=== PATIENT | female | born 1985 | race Caucasian/White ===

== ENCOUNTER 2020-11-15 16:27 | Outpatient (RCR) | payer OTHER, SELFPAY ==
[2020-11-07 11:29] VITALS: BP 125/81; PULSE 89
[2020-11-15 17:08] VITALS: BP 145/79; PULSE 91
== END 2020-12-03 07:55 | disposition home or self-care (01) ==
LOC: ANHOBOP 16:27
PROVIDERS: PCP Family Medicine; Visit Provider Obstetrics & Gynecology
DX: O16.3 Unspecified maternal hypertension, third trimester (principal); Z3A.36 36 weeks gestation of pregnancy; Z3A.37 37 weeks gestation of pregnancy
CPT/HCPCS: 59025

== ENCOUNTER 2020-11-21 10:14 | Inpatient (IN) | payer OTHER, SELFPAY ==
[2020-11-21] VITALS (72 sets, daily range): BP systolic 83–162; BP diastolic 50–103; PULSE 78–120; TEMP 36.4–36.7; O2SAT 97–100; BMI 46.5
--- NOTE | 2020-11-21 10:25 | WPDANESEPP ---
Anes - Eval Pre Procedure Procedure: Operation Date: 11/21/20 13:30 Proposed Procedures p Primary Section - Arnaud Kumar MD Date/Time: 11/21/20 10:25 Pre Op Diagnosis: version Patient Data Age: 34 Gender: F Height: Weight: Allergies Allergy/AdvReac Type Severity Reaction Status Date / Time No Known Allergies Allergy Verified 11/03/20 14:36 Home Medications Medication Instructions Recorded Confirmed Type PNV cmb#95-ferrous fumarate-FA 1 tablet PO DAILY 11/03/20 11/07/20 History [] cetirizine [Zyrtec] 10 mg PO DAILY 11/03/20 11/07/20 History labetalol 300 mg PO Q12H 11/03/20 11/07/20 History aspirin 81 mg PO DAILY 11/07/20 11/07/20 History Patient hx anesthesia problems: none Family hx anesthesia problems: none PMFSH Past Medical History Medical History FH: HTN (hypertension) Morbid obesity Family History Family History Mother Hypertension Social History Social History Substance use: never Spiritual care concerns: No Exam Day of Procedure 11/21/20 10:25 Patient weight: morbidly obese Heart: regular rate and rhythm Lungs: normal air movement Airway: Mallampati scale Neurological: alert and oriented
[2020-11-21] MEDS: LACTATED RINGERS 1,000 ML 125 ML IV CONT ×3 (10:46→20:30)
--- NOTE | 2020-11-21 10:48 | LDADM ---
This patient, Alycia Bajwa, was admitted to Labor/Delivery/Recovery 120 on 11/21/20 at 10:14. Plans for labor, pain management and were discussed with patient. Patient/family oriented to hospital policies and general routines including ID bracelet, bed and alarms, visiting hours, pain management, procedures, bathroom and other care routines, personal items, smoking policy, room service/diet and guest tray routines, infant security routines, and visiting hours. Patient/Family are encouraged to report perceived risks to care and to ask questions if they do not understand what they are told or what they should do. See OBIX for further documentation.
[2020-11-21 12:09] LABS: Basophils Percent Auto 0.3 % (0.2-1.2); Eosinophils Absolute Auto 0.1 K/mm3 (0-0.3); Eosinophils Percent Auto 1.1 % (0-4.4); Hematocrit 33.6 % (37.0-47.0); Hemoglobin 11.5 g/dL (12.0-15.0); Immature Granulocyte Absolute 0.08 K/mm3 (0.00-0.031); Immature Granulocyte Percent A 0.7 % (0-0.5); Lymphocytes Absolute Auto 1.59 K/mm3 (0.9-3.2); Lymphocytes Percent Auto 14.7 % (18.3-44.2); Mean Corpuscular HGB Conc 34.2 g/dl (32-36); Mean Corpuscular Volume 90.6 fl (80-100); Mean Platelet Volume 9.7 fl (7.4-10.4); Monocytes Absolute Auto 0.7 K/mm3 (0.1-0.6); Neutrophils Absolute Auto 8.3 K/mm3 (1.3-6.7); Neutrophils Percent Auto 77.2 % (45.5-73.1); Platelet Count Result 258 k/mm3 (150-375); Red Blood Count 3.71 M/mm3 (4.2-5.4); Red Cell Distribution Width 13.2 % (11.5-14.5); White Blood Count 10.8 K/mm3 (4.5-10.0)
--- NOTE | 2020-11-21 12:15 | PM.IMHP ---
H&P: HPI History of Present Illness Date/Time: 11/21/20 12:53 34 y/o G1 at 38 3/7 weeks with CHTN, on labetalol 300 mg po bid. Also found to have breech presentation. Here for ECV, possible induction of labor vs. . Chief Complaint: Breech baby Review of Systems Review of Systems: All systems reviewed & are unremarkable except as noted in HPI and below PMFSH Past Medical History Medical History FH: HTN (hypertension) Morbid obesity Family History Family History Mother Hypertension Social History Social History Smoking status: Never smoker Substance use: never Spiritual care concerns: No Meds Home Medications and Allergies Home Medications Medication Instructions Recorded Confirmed Type PNV cmb#95-ferrous fumarate-FA 1 tablet PO DAILY 11/03/20 11/21/20 History [] cetirizine [Zyrtec] 10 mg PO DAILY 11/03/20 11/21/20 History labetalol 300 mg PO Q12H 11/03/20 11/21/20 History aspirin 81 mg PO DAILY 11/07/20 11/21/20 History Allergies Allergy/AdvReac Type Severity Reaction Status Date / Time No Known Allergies Allergy Verified 11/03/20 14:36 Vital Signs Vital Signs - 24 hr 11/21/20 10:31 11/21/20 11:00 11/21/20 11:32 Temperature 36.4 C Pulse Rate 105 H Blood Pressure 134/87 Pulse Oximetry 99 11/21/20 11:33 11/21/20 11:37 11/21/20 11:40 Temperature Pulse Rate 87 100 Blood Pressure 147/100 H 147/79 H Pulse Oximetry 98 11/21/20 11:42 11/21/20 11:44 11/21/20 11:46 Temperature Pulse Rate 95 87 105 H Blood Pressure 142/79 H 143/87 H 110/95 H Pulse Oximetry 97 11/21/20 11:47 11/21/20 11:48 11/21/20 11:51 Temperature Pulse Rate 94 86 Blood Pressure 130/79 141/75 H Pulse Oximetry 98 11/21/20 11:52 11/21/20 11:54 11/21/20 11:56 Temperature Pulse Rate 89 96 Blood Pressure 139/65 135/56 L Pulse Oximetry 98 11/21/20 11:57 11/21/20 11:59 11/21/20 12:01 Temperature Pulse Rate 94 95 Blood Pressure 132/55 L 138/50 L Pulse Oximetry 98 11/21/20 12:02 11/21/20 12:04 11/21/20 12:07 Temperature Pulse Rate 87 Blood Pressure 129/61 Pulse Oximetry 97 99 11/21/20 12:12 11/21/20 12:16 11/21/20 12:17 Temperature Pulse Rate 104 H Blood Pressure 127/69 Pulse Oximetry 97 98 11/21/20 12:22 11/21/20 12:27 11/21/20 12:32 Temperature Pulse Rate Blood Pressure Pulse Oximetry 99 98 98 11/21/20 12:37 11/21/20 12:42 11/21/20 12:46 Temperature Pulse Rate 100 Blood Pressure 83/60 L Pulse Oximetry 99 100 Exam Const: Orientation/consciousness: patient oriented x3 Other: Well-developed, well-nourished female in no acute distress. Neck: Thyroid: thyroid normal Lymphatic: no lymphadenopathy noted (in neck, axilla or inguinal nodes) Resp: Effort & Inspection: normal respiratory effort Auscultation: clear to auscultation bilaterally Cardio: Rate: regular rate Rhythm: regular rhythm Heart sounds: S1 normal heart sound present and S2 normal heart sound present GI: Other: ABD: Soft, nontender, nondistended, gravid. No guarding or rebound tenderness. No hepatosplenomegaly. NST reactive. TOCO: rare contractions. Bedside ultrasound shows sidney breech presentation with back to maternal left. Fundal placenta. Adequate AFV. : General: Yes no CVA tenderness Other: Cervix 1/50/-3. Back/Spine/Pelvis: Back: no CVA tenderness Skin: General skin exam: normal color and no rashes or lesions noted Neuro: General: patient oriented x3 Extrem: Other: Extremities: nontender with no edema Psych: Mental Status: mental status grossly normal Affect: normal affect H&P: Results Labs Labs: Short CBC 11/21/20 Range/Units 10:27 WBC 10.8 H (4.5-10.0) K/mm3 Hgb 11.5 L (12.0-15.0) g/dL Hct
[2020-11-21] MEDS: TERBUTALINE SULFATE 1 MG/ML VIAL 0.25 MG SUB-Q (12:25)
--- NOTE | 2020-11-21 13:00 | W.PM.PROC2 ---
Procedure Note - Detailed Date of Procedure 11/21/20 Pre-op Diagnosis Breech presentation IUP at 38 3/7 weeks CHTN Post-op Diagnosis other (Cephalic presentation IUP at 38 3/7 weeks CHTN) Procedure Performed External cephalic version under ultrasound guidance. Surgeon Arnaud Kumar MD Anesthesia epidural Description of Procedure The patient was admitted to Labor and delivery. IV access was obtained and she received IV hydration. She received an epidural for pain control. Bedside ultrasound performed by ne confirmed sidney breech presentation with the back to the maternal left. Adequate amniotic fluid volume and fundal placenta were confirmed. She was given 0.25mg of terbutaline subcutaneously. Under ultrasound guidance, the breech was elevated out of the maternal pelvis. A reverse (clockwise) somersault was attempted unsuccessfully. A forward (counterclockwise) somersault was attempted, which was successful. Cephalic presentation was confirmed sonographically. heart rate was normal throughout the procedure. The patient tolerated the procedure well. The cervix was examined and amniotomy was performed. Clear fluid was noted. An intrauterine pressure catheter was also placed. She was moved to a labor room. She will receive oxytocin intravenously for labor induction. Maternal blood type is A negative. Her 's blood type os O negative. Estimated Blood Loss 0 Drains No Packing No Pathology none sent Complications None Condition stable Disposition other (Labor room)
[2020-11-21] MEDS: OXYTOCIN 30 UNITS/NS 500 ML 30 UNITS/500 ML BAG 6 UNITS IV CONT (13:30)
--- NOTE | 2020-11-21 21:51 | PM.OBPNLAB ---
Pain Control Date/time seen: 11/21/20 21:51 Comments: Began to feel contractions, so epidural was restarted. Pelvic Exam Dilation (cm): 2 Effacement (%): 80 station: -3 Contractions Monitor mode: Internal Contraction frequency: 3 Contraction pattern: Regular Status status: Category l Assessment and Plan Comments: Continue labor.
[2020-11-21] MEDS: LABETALOL HCL 100 MG TABLET 300 MG PO (22:28)
[2020-11-22] VITALS (93 sets, daily range): BP systolic 93–141; BP diastolic 40–91; PULSE 59–133; RESP 14–20; TEMP 36.2–37.7; O2SAT 93–99
[2020-11-22] MEDS: LACTATED RINGERS 1,000 ML 125 ML IV CONT (00:30)
[2020-11-22 06:17] LABS: Rapid Plasma Reagin Non-Reactive (NonReactive)
[2020-11-22] MEDS: ONDANSETRON INJ 4 MG/2 ML VIAL IV PUSH (06:22)
[2020-11-22] MEDS: AMPICILLIN 2 GM/NS 100 ML 2 GM/100 ML BAG IVPB (06:38)
[2020-11-22] MEDS: LORATADINE 10 MG TABLET PO (07:01)
[2020-11-22] MEDS: LABETALOL HCL 100 MG TABLET 300 MG PO (07:01)
--- NOTE | 2020-11-22 07:36 | PM.OBPNLAB ---
Pain Control Date/time seen: 11/22/20 07:36 Pain control: epidural Comments: Pt is comfortable in bed. She is afebrile and denies any abdominal tenderness. Pelvic Exam Dilation (cm): 2 Effacement (%): 80 station: -3 Amniotic membrane status: Ruptured Contractions Monitor mode: Internal Contraction frequency: 3 Contraction pattern: Regular Status status: Category l Assessment and Plan Pitocin rate (mU/min): 8 Assessment: induction ongoing Plan: Comments: pt has been ruptured for >18 hrs. She has an IUPC in and has been receiving pitocin for >18 hrs. Her cervix remains unchanged and the head is not engaged. discussed arrest of dilation and failed IOL. pt given the option of delivery or continued pitocin IOL. Risks, benefits, alternatives discussed. Pt and discussed and elected to proceed with delivery.
[2020-11-22] MEDS: ceFAZolin 3 GM/D5W 100 ML 100 ML IVPB (08:01)
[2020-11-22] MEDS: OXYTOCIN 30 UNITS/NS 500 ML 30 UNITS/500 ML BAG 125 UNITS IV CONT (09:20)
--- NOTE | 2020-11-22 09:29 | W.PM.PROC2 ---
Procedure Note - Detailed Date of Procedure 11/22/20 Pre-op Diagnosis version failed IOL arrest of dilation Post-op Diagnosis same Procedure Performed Primary section Surgeon Yuriy Nicholson MD Anesthesia epidural Indications patient underwent successful ECV. pt had attempted IOL after version. Cvx never dilated and head never engaged Findings approximately 3cm subserosal fibroid on the posterior aspect of the fundus. normal appearing fallopian tubes and ovaries bilaterally. Description of Procedure The patient was taken to the operating room. A combined spinal epidural anesthesic was in place and found to be adequate. The patient was placed in a supine position with a slight left lateral tilt. A choe catheter was placed with return of clear urine. A Bovie grounding pad was placed. Surgical prep was performed and surgical drapes were placed. A surgical time out was performed. A Pfannenstiel skin incision was then made with the scalpel and carried through to the underlying layer of fascia. The fascia was then incised in the midline and the incision was extended laterally with the Encarnacion scissors. The superior aspect of the fascia was then grasped with the Gabriela clamps, elevated, and the underlying rectus muscles dissected off bluntly and sharply. Attention was then turned to the inferior aspect of this incision which, in a similar fashion, was grasped, tented up with the Gabriela clamps, and the rectus muscles dissected off both bluntly and sharply. The rectus muscles were then in the midline. The peritoneum was identified and entered bluntly. The peritoneal incision was then extended superiorly and inferiorly with good visualization of the bladder. The vesico-uterine serosa was identified and dissected to create a bladder flap. The bladder blade was reinserted. The uterus was inspected for rotation. A low-transverse uterine incision was made sharply with the scalpel and entry was made into the uterine cavity. The uterine incision was extended laterally bluntly. The bladder blade was removed and the fetus was delivered atraumatically. The nose and mouth were suctioned with a bulb syringe. The umbilical cord was clamped twice and cut. The was handed off to the waiting staff. A second segment of umbilical cord was clamped and cut for cord blood gasses. Cord blood was collected for determination of the blood type and for direct Marvin. The placenta was delivered spontaneously without difficulty. The placenta appeared grossly normal and complete. The uterus was unable to be exteriorized and remained in the abdomen. The uterus was cleared of all clot and debris. A posterior fundal fibroid was noted. The uterine incision was repaired using 0-Monocryl suture in a running fashion. A second layer of 0 Monocryl suture was used in an imbricating fashion to obtain excellent hemostasis and uterine strength. The uterine closure was inspected for hemostasis. The posterior aspect of the uterus and the broad ligaments were inspected and the posterior cul-de-sac cleared of fluid and blood clots. The uterine closure was again inspected and found to be hemostatic. The uterus was returned to the abdominal cavity. The pericolic gutters were inspected and were cleared of all blood clots and debris. The uterine closure was then re inspected to ensure hemostasis as were all subfascial tissues. The peritoneum was closed using 3-0 vicryl in a running fashion. The fascia was reapproximated with 0-vicryl in a running fashion. The subcutaneous tissue was irrigated and hemostasis achieved with electrocautery. It was reapproximated with 3-0 vicryl in a running fashion. The skin was closed with 4- vicryl in a running fashion. A JIMMY wound vacuum was applied to the wound. The patient tolerated the procedure well. Sponge, lap and needle counts were correct times three. The patient was taken to recovery in stable condition and without ant
--- NOTE | 2020-11-22 09:38 | P.PCNOB_ITS ---
OB - Delivery Note Procedure Procedure: Procedures Operation Date: 11/21/20 13:30 <No data on this case meets the specified criteria> Operation Date: 11/22/20 08:00 <No data on this case meets the specified criteria> events: Induced HTN and Labor Induction Intrapartal events: Prolonged Latent Phase, Ceph-Pelvic Disproportion and Failure to Progress in Labor Induction method: per pitocin protocol Delivery augmentation: rupture of membranes Route of delivery: Quantitative Blood Loss (ml): 610 Anesthesia type: Epidural Disposition: floor [place] Baby Date of : 11/22/20 Time of : 08:20 Weeks of gestation at delivery: 38 gender: Female Weight (pounds): 7 Weight (ounces): 9 presentation: vertex Placenta delivery description: Manual Removal cord vessel description: 3 Vessels and Around Body x1 score one minute: 3 score five minutes: 9
[2020-11-22] MEDS: fentaNYL CITRATE INJ (*CRX) 100 MCG/2 ML VIAL 50 MCG IV PUSH (10:47)
--- NOTE | 2020-11-22 11:47 | PC.NURSE ---
Patient transferred to post room # 291 per stretcher. Support person present. Oriented to unit, room, information board, rooming in, admission packet and security measures. Patient verbalizes understanding.
[2020-11-22] MEDS: KETOROLAC 30 MG/ML VIAL (*BKC) IV PUSH (13:41)
[2020-11-22] MEDS: HYDROcodone/acetaminophen (*CRX) 10-325 MG TABLET 1 TAB PO ×2 (13:44→17:46)
[2020-11-22] MEDS: DEXTROSE 5%/0.45% SOD CHL 1,000 ML 125 ML IV CONT (13:45)
--- NOTE | 2020-11-22 14:04 | PC.NURSE ---
Consult with pt., mother wishes to pump and bottle feed. Breast pump provided due to mother's wishes. Instructions given on breast pump care and usage, pumping schedule, nipple care, and collection and storage of breast milk. Encouraged [id number], breast massage and manual expression to stimulate supply. Assessed patient for correct flange size, placement and draw. Patient verbalizes and demonstrates understanding of instructions. Discussed colostrum vs milk supply and mother may not see more than a few drops the first few days, milk should transition in by day 3 and she may see more volume pumped per session.
[2020-11-22] MEDS: DOCUSATE SODIUM 100 MG CAPSULE PO (17:46)
[2020-11-22] MEDS: SIMETHICONE 80 MG TAB.CHEW PO (17:47)
[2020-11-23 04:05] VITALS: BP 132/61; PULSE 107; RESP 16; TEMP 36.1
[2020-11-23] MEDS: ACETAMINOPHEN 325 MG TABLET 650 MG PO ×2 (04:30→10:33)
[2020-11-23] MEDS: IBUPROFEN 600 MG TABLET PO ×4 (04:30→23:37)
[2020-11-23 05:00] LABS: Basophils Percent Auto 0.3 % (0.2-1.2); Eosinophils Absolute Auto 0.1 K/mm3 (0-0.3); Eosinophils Percent Auto 0.5 % (0-4.4); Hematocrit 29.5 % (37.0-47.0); Hemoglobin 9.8 g/dL (12.0-15.0); Immature Granulocyte Percent A 0.6 % (0-0.5); Lymphocytes Percent Auto 8.1 % (18.3-44.2); Mean Corpuscular HGB Conc 33.2 g/dl (32-36); Mean Corpuscular Hemoglobin 30.8 pg (26-34); Mean Corpuscular Volume 92.8 fl (80-100); Mean Platelet Volume 9.5 fl (7.4-10.4); Monocytes Absolute Auto 0.8 K/mm3 (0.1-0.6); Monocytes Percent Auto 5.2 % (2.6-8.5); Neutrophils Absolute Auto 13.6 K/mm3 (1.3-6.7); Neutrophils Percent Auto 85.3 % (45.5-73.1); Platelet Count Result 208 k/mm3 (150-375); Red Blood Count 3.18 M/mm3 (4.2-5.4); Red Cell Distribution Width 13.5 % (11.5-14.5)
[2020-11-23 07:10] VITALS: BP 136/83; PULSE 99; RESP 18; TEMP 36.4; O2SAT 97
[2020-11-23] MEDS: POLYSACCHARIDE IRON COMPLEX 150 MG CAPSULE PO ×2 (09:33→16:23)
[2020-11-23] MEDS: MULTIVIT/MIN/PREN/FOL AC/IRON TABLET 1 TAB PO (09:34)
[2020-11-23] MEDS: DOCUSATE SODIUM 100 MG CAPSULE PO ×2 (09:34→16:23)
--- NOTE | 2020-11-23 11:27 | PM.OBPNVD ---
OB - PN: Subj Subjective Date/time seen: 11/23/20 11:27 Interval history: Patient doing well this AM. She is ambulating. She is tolerating PO. She reports adequate pain control. Her bleeding is normal and she reports normal lochia. She denies fever, chills, N/V. She has not yet passed flatus. Patient comments: no complaints and pain well controlled; no flatus present OB - PN: Obj Data Labs CBC & Chem 7: 11/23/20 04:07 Labs: Laboratory Results - last 24 hr 11/23/20 04:07 WBC 16.0 H RBC 3.18 L Hgb 9.8 L Hct 29.5 L MCV 92.8 MCH 30.8 MCHC 33.2 RDW 13.5 Plt Count 208 MPV 9.5 Immature Gran % (Auto) 0.6 H Neut % (Auto) 85.3 H Lymph % (Auto) 8.1 L Runnels % (Auto) 5.2 Eos % (Auto) 0.5 Baso % (Auto) 0.3 Lymph # (Auto) 1.30 Runnels # (Auto) 0.8 H Eos # (Auto) 0.1 Baso # (Auto) 0.0 Abs Immat Gran (auto) 0.10 H Absolute Neuts (auto) 13.6 H Absolute Nucleated RBC 0.0 Nucleated RBC % 0.0 OB - PN A/P Plan day: 1 Plan: routine care Comments: patient doing well this AM s/p choe, voiding spontaneously tolerating PO H/H 9.10/28, asymptomatic, will continue iron supplementation Pt with CHTN, pt was on antihypertensives throughout . BP remains normotensive since delivery. will continue to hold labetalol at this time. Will restart at pre- dose of 100 mg BID if BP elevate continue routine PP care Time Spent With Patient Time: Total time spent is greater than 50% in coordination of care (as documented) at patient's floor/unit and/or counseling patient: Time with patient: less than 15 minutes Review of Systems Constitutional: Constitutional: Reports no additional constitutional complaints Cardiovascular: Cardiovascular: Reports no additional cardiovascular complaints Respiratory: Respiratory: Reports no additional respiratory complaints Gastrointestinal: Gastrointestinal: Reports no additional gastrointestinal complaints Genitourinary: Genitourinary: Reports no additional female genitourinary complaints Exam Const: General: comfortable and no acute distress Resp: Effort & Inspection: normal respiratory effort Auscultation: clear to auscultation bilaterally Cardio: Rate: regular rate GI: GI Palp: Yes Soft to palpation and Yes Tenderness to palpation present (GI) (appropriately tender around incision ) Auscultation: normal bowel sounds Other: fundus firm and below umbilicus Incision C/D, JIMMY dressing in place Urinary Catheter: Urinary Catheter: urine clear Psych: Appearance: grossly normal Mental Status: mental status grossly normal Affect: normal affect
[2020-11-23 12:17] VITALS: BP 131/78; PULSE 108; RESP 18; TEMP 37.1; O2SAT 99
--- NOTE | 2020-11-23 13:33 | WPDANLDPN2 ---
Anes-Prog Note L&D Date/Time: 11/23/20 13:33 Comfortable throughout: section Neuraxial method: epidural Epidural/Spinal procedure site: clean & non-tender Neuro status: Neuro function grossly intact. Cardiovascular status: normal Respiratory status: normal Airway patency: baseline Mental status: baseline Post-Op hydration status: normal Vital Signs: Last Vital Signs Temp 37.1 C 11/23/20 12:17 Pulse 108 H 11/23/20 12:17 Resp 18 11/23/20 12:17 BP 131/78 11/23/20 12:17 Pulse Ox 99 11/23/20 12:17 Pain score (VAS): no complaints I/O: Intake & Output 11/22/20 11/23/20 11/23/20 23:59 07:59 15:59 Intake Total 800 1400 Output Total 600 1300 Balance 200 100 Post-procedural complaints: none Patient feedback: Patient satisfied with anesthetic care.
--- NOTE | 2020-11-23 13:33 | WPDANLDNPN2 ---
Anes-Prog Note L&D-Neuraxial Date/Time: 11/23/20 13:33 Neuraxial medications: epidural PF morphine Opiod-related complaints: none Patient feedback: Patient satisfied with post-operative pain management.
[2020-11-23 16:15] VITALS: BP 118/68; PULSE 114; RESP 18; TEMP 36.6; O2SAT 98
[2020-11-23] MEDS: HYDROcodone/acetaminophen (*CRX) 5-325 MG TABLET 1 TAB PO ×2 (16:23→23:38)
[2020-11-23] MEDS: SIMETHICONE 80 MG TAB.CHEW PO ×3 (16:24→23:37)
[2020-11-23 20:15] VITALS: BP 109/69; PULSE 101; RESP 16; TEMP 36.6
[2020-11-23 23:20] VITALS: BP 120/71; PULSE 107; RESP 16; TEMP 36.7
[2020-11-24] MEDS: SIMETHICONE 80 MG TAB.CHEW PO ×2 (04:55→10:37)
[2020-11-24] MEDS: IBUPROFEN 600 MG TABLET PO (04:55)
[2020-11-24] MEDS: HYDROcodone/acetaminophen (*CRX) 5-325 MG TABLET 1 TAB PO ×2 (04:56→09:35)
[2020-11-24 04:58] VITALS: BP 137/88; PULSE 101; RESP 16; TEMP 36.7
--- NOTE | 2020-11-24 07:14 | PM.OBDSVD ---
DS: Admitting Diagnosis Discharge Date 11/24/20 Admitting Diagnosis Intrauterine at term breech presentation OB - DS: Summary OB Procedures : None OB Procedures Intrapartum: OB Procedures: : None Peripartum Data Delivery Method: Section Procedures: Procedures Operation Date: 11/21/20 13:30 <No data on this case meets the specified criteria> Operation Date: 11/22/20 08:00 Actual Procedure Side Surgeon p Section Bilateral Yuriy Nicholson MD complications: none Status at Discharge Functional status at discharge: independent ambulation Overall status at discharge: patient is progressing back to baseline Time Spent with Patient Time attestation: Total time spent providing and/or coordinating discharge services: Time spent: Less than 30 minutes Exam Const: General: comfortable and no acute distress Resp: Effort & Inspection: normal respiratory effort Auscultation: clear to auscultation bilaterally Cardio: Rate: regular rate GI: Inspection: non-distended GI Palp: Yes Soft to palpation, No Firmness to palpation present (GI), Yes Tenderness to palpation present (GI) (mild tenderness over incision ) and No Guarding due to palpation present (GI) Auscultation: normal bowel sounds Psych: Appearance: grossly normal Mental Status: mental status grossly normal Discharge Plan Discharge Discharging Clinician: Yuriy Nicholson Patient Disposition: Home, Self-Care Activity: as tolerated and pelvic rest Diet: regular Patient Instructions: Antibiotic Form, (DC) Stand Alone Forms: General Discharge Information Follow-up/Referrals: Arnaud Kumar MD [Physician] - 1 Week Discharge Medications: New hydrocodone-acetaminophen 5-325 mg tablet 1 tablet PO Q6H PRN (Reason: pain) Qty: 28 RF: 0 polysaccharide iron complex 150 mg iron Capsule 150 mg PO BIDWM Qty: 60 RF: 0 ibuprofen 600 mg Tablet 600 mg PO Q6H PRN (Reason: Cramping) Qty: 30 RF: 0 Continued cetirizine [Zyrtec] 10 mg Tablet 10 mg PO DAILY RF: 0 PNV cmb#95-ferrous fumarate-FA [] 28 mg iron- 800 mcg Tablet 1 tablet PO DAILY RF: 0 Discontinued aspirin 81 mg Capsule 81 mg PO DAILY RF: 0 labetalol 300 mg Tablet 300 mg PO Q12H RF: 0 Date of admission: 11/21/20 10:14 Primary Care Provider: Osiel,Atul Iraheta Admitting Provider: Arnaud Kumar Attending physician on admission: Arnaud Kumar Condition: Stable
[2020-11-24 08:45] VITALS: BP 144/96; PULSE 98; RESP 18; TEMP 36.4
[2020-11-24] MEDS: POLYSACCHARIDE IRON COMPLEX 150 MG CAPSULE PO (09:35)
[2020-11-24] MEDS: MULTIVIT/MIN/PREN/FOL AC/IRON TABLET 1 TAB PO (09:36)
[2020-11-24] MEDS: DOCUSATE SODIUM 100 MG CAPSULE PO (09:36)
== END 2020-11-24 11:42 | disposition home or self-care (01) | DRG 788 ==
LOC: ANHLDR 11-22 09:22 → ANHOB2 11-24 07:15 → ANHLDR 11-27 09:55 → ANHOB2 11-27 09:55
PROVIDERS: Admitting Provider Obstetrics & Gynecology; PCP Family Medicine; Visit Provider Student in an Organized Health Care Education/Training Program
PROC: 10D00Z1 Extraction of Products of Conception, Low, Open Approach (ICD-10-PCS; CPT 59514; principal; 2020-11-22 08:00)
DX: O10.92 Unspecified pre-existing hypertension complicating childbirth (principal); O32.1XX0 Maternal care for breech presentation, not applicable or unspecified; O76 Abnormality in fetal heart rate and rhythm complicating labor and delivery; O69.82X0 Labor and delivery complicated by other cord entanglement, without compression, not applicable or unspecified; O33.9 Maternal care for disproportion, unspecified; Z3A.38 38 weeks gestation of pregnancy; Z37.0 Single live birth; O42.92 Full-term premature rupture of membranes, unspecified as to length of time between rupture and onset of labor; O32.4XX0 Maternal care for high head at term, not applicable or unspecified
CPT/HCPCS: 36415; 59412; 85025; 86592; 86850; 86900; 86901; A9270; J0131; J0290; J0456; J0690; J1165; J1885; J2274; J2405; J2590; J2795; J3010; J3105; J7120

== ENCOUNTER 2022-07-04 11:11 | Outpatient (RCR) | payer OTHER, SELFPAY ==
[2022-05-21] VITALS (18 sets, daily range): BP systolic 126; BP diastolic 76; PULSE 86–96; O2SAT 94–99
[2022-06-05 11:33] VITALS: BP 122/81; PULSE 95
[2022-06-11 11:59] VITALS: BP 123/69; PULSE 88
[2022-06-11 13:06] VITALS: BP 136/83; PULSE 83
[2022-06-18 12:38] VITALS: BP 131/62; PULSE 93
[2022-06-25 14:46] VITALS: BP 121/51; PULSE 98
[2022-06-25 15:19] VITALS: BP 121/51; PULSE 95
--- NOTE | ~2022-07-04 | US_ITS ---
EXAMINATION: US OB BPP wo non-stress DATE: 06/11/2022 13:04 CDT INDICATION: Hypertension TECHNIQUE: Real-time transabdominal obstetric ultrasound. FINDINGS: No prior studies for comparison. There is a single living fetus in vertex presentation. The placenta is fundal without placenta previ a. cardiac activity and movement is noted with a heart rate of 136 beats per minute. Biophysical profile: breathin of 2 movement: 2 of 2 tone: 2 of 2 Amniotic flud pocket: 2 of 2 Total score: 8 of 8 IMPRESSION: 1. Single living intrauterine in vertex presentation. 2: Total biophysical profile score of 8/8. Reviewed, dictated and finalized at location B.
[2022-07-04 12:26] VITALS: BP 123/74; PULSE 98
== END 2022-08-19 23:59 | disposition home or self-care (01) ==
LOC: ANHOBOP 11:11
PROVIDERS: PCP Family Medicine; Visit Provider Obstetrics & Gynecology
DX: O16.3 Unspecified maternal hypertension, third trimester (principal); Z3A.32 32 weeks gestation of pregnancy; Z3A.34 34 weeks gestation of pregnancy; Z3A.35 35 weeks gestation of pregnancy; Z3A.36 36 weeks gestation of pregnancy; Z3A.37 37 weeks gestation of pregnancy; Z3A.38 38 weeks gestation of pregnancy
CPT/HCPCS: 59025; 76819; J7120

== ENCOUNTER 2022-07-07 10:34 | Outpatient (CLI) | payer OTHER, SELFPAY ==
[2022-07-07 11:01] LABS: Basophils Percent Auto 0.3 % (0.2-1.2); Eosinophils Absolute Auto 0.2 K/mm3 (0-0.3); Eosinophils Percent Auto 1.7 % (0-4.4); Hematocrit 34.5 % (37.0-47.0); Hemoglobin 11.7 g/dL (12.0-15.0); Immature Granulocyte Absolute 0.05 K/mm3 (0.00-0.031); Immature Granulocyte Percent A 0.5 % (0-0.5); Lymphocytes Absolute Auto 1.63 K/mm3 (0.9-3.2); Lymphocytes Percent Auto 17.1 % (18.3-44.2); Mean Corpuscular HGB Conc 33.9 g/dl (32-36); Mean Corpuscular Hemoglobin 30.3 pg (26-34); Mean Corpuscular Volume 89.4 fl (80-100); Mean Platelet Volume 9.1 fl (7.4-10.4); Monocytes Absolute Auto 0.6 K/mm3 (0.1-0.6); Monocytes Percent Auto 5.8 % (2.6-8.5); Neutrophils Absolute Auto 7.1 K/mm3 (1.3-6.7); Neutrophils Percent Auto 74.6 % (45.5-73.1); Platelet Count Result 255 k/mm3 (150-375); Red Blood Count 3.86 M/mm3 (4.2-5.4); Red Cell Distribution Width 14.2 % (11.5-14.5); White Blood Count 9.5 K/mm3 (4.5-10.0)
[2022-07-08 11:02] LABS: Rapid Plasma Reagin Non-Reactive (NonReactive)
== END 2022-07-07 10:35 | disposition home or self-care (01) ==
LOC: ANHLAB 10:40
PROVIDERS: PCP Family Medicine; Visit Provider Obstetrics & Gynecology
DX: Z01.812 Encounter for preprocedural laboratory examination (principal)
CPT/HCPCS: 36415; 85025; 86592; 86850; 86900; 86901

== ENCOUNTER 2022-07-08 09:58 | Inpatient (IN) | payer OTHER, SELFPAY ==
[2022-07-08] VITALS (46 sets, daily range): BP systolic 95–138; BP diastolic 53–95; PULSE 68–93; RESP 12–19; TEMP 36–36.6; O2SAT 89–98; BMI 45.2
[2022-07-08] MEDS: LACTATED RINGERS 1,000 ML 125 ML IV CONT ×3 (10:52→13:35)
--- NOTE | 2022-07-08 11:42 | PM.IMHP ---
H&P: HPI History of Present Illness Date/Time: 07/08/22 11:42 Chief Complaint: Here for c section. Narrative: 36 y/o at 39 1/7 weeks gestation here for repeat . Has CHTN, managed on labetalol. Good movement. No contractions. GBS neg. Review of Systems Review of Systems: All systems reviewed & are unremarkable except as noted in HPI and below PMFSH Past Medical History Medical History FH: HTN (hypertension) Morbid obesity Surgical History Surgical History History of delivery Family History Family History Mother Hypertension Social History Social History Smoking status: Never smoker Second hand tobacco smoke exposure: No Substance use: never Lack of Transportation: No Lack of Food: Never True Current Housing: I Have Housing Concerned About Future Housing: No Difficulty Paying Gas/Electric Bills: No Difficulty Paying for Meds: No Currently Unemployed: No Education: Associate Degree Difficulty w/ Childcare or Family Care: No Spiritual care concerns: No Meds Home Medications and Allergies Home Medications Medication Instructions Recorded Confirmed Type labetalol 200 mg tablet 200 mg PO Q12H 05/21/22 07/08/22 History cetirizine 10 mg tablet (Zyrtec) 10 mg PO DAILY 06/11/22 07/08/22 History vit no.95-ferrous 1 tablet PO DAILY 06/11/22 07/08/22 History fumarate 28 mg-folic acid 800 mcg tablet () aspirin 81 mg tablet,delayed 81 mg PO DAILY 06/24/22 07/08/22 History release Allergies Allergy/AdvReac Type Severity Reaction Status Date / Time No Known Allergies Allergy Verified 11/03/20 14:36 Vital Signs Vital Signs - 24 hr 07/08/22 10:17 07/08/22 10:31 07/08/22 11:01 Pulse Rate 93 85 80 Blood Pressure 136/91 H 120/95 H 120/81 Oxygen Delivery 07/08/22 11:31 07/08/22 10:26 Pulse Rate 84 Blood Pressure 124/83 Oxygen Delivery Room Air Exam Const: Orientation/consciousness: patient oriented x3 Other: Well-developed, well-nourished female in no acute distress. Neck: Thyroid: thyroid normal Lymphatic: no lymphadenopathy noted (in neck, axilla or inguinal nodes) Resp: Effort & Inspection: normal respiratory effort Auscultation: clear to auscultation bilaterally Cardio: Rate: regular rate Rhythm: regular rhythm Heart sounds: S1 normal heart sound present and S2 normal heart sound present GI: Other: ABD: Soft, nontender, nondistended, gravid. NST reactive. TOCO: no contractions. No guarding or rebound tenderness. No hepatosplenomegaly. : General: Yes no CVA tenderness Other: Deferred to OR. Back/Spine/Pelvis: Back: no CVA tenderness Skin: General skin exam: normal color and no rashes or lesions noted Neuro: General: patient oriented x3 Extrem: Other: Extremities: nontender with no edema Psych: Mental Status: mental status grossly normal Affect: normal affect Assessment and Plan Assessment and plan (1) History of delivery: Code(s): Z98.891 - History of uterine scar from previous surgery Status: Acute Assessment and Plan: A: IUP at 39 1/7 weeks with prior , desiring repeat. P: Plan repeat . She understands risks of surgery to include risks of anesthesia, risks of pain, infection, bleeding, blood products, thromboembolic phenomena and damage to adjacent structures such as bowel, bladder, ureters, blood vessels and nerves. She understands all these risks and elects to proceed with surgery. (2) Chronic hypertension affecting : Code(s): O10.919 - Unspecified pre-existing hypertension complicating , unspecified trimester Status: Acute
--- NOTE | 2022-07-08 11:45 | WPDHPUPDATE1 ---
History and Physical Update Update Date/Time: 07/08/22 11:45 History and Physical has been reviewed, including an updated exam of the patient. There are NO changes in the patient's condition. Risks, benefits, and alternatives have been discussed and questions answered. Patient agrees to proceed with procedure.
--- NOTE | 2022-07-08 11:51 | P.PNAN_ITS ---
Anes - Initial Pre Proc Eval Procedure: Operation Date: 07/08/22 12:00 Proposed Procedures p Repeat Section - Arnaud Kumar MD Date/Time: 07/08/22 11:51 Surgeon: Arnaud Kumar MD Pre Op Diagnosis: Repeat Section Patient Data Age: 36 Gender: F Height: 1.78 m Weight: 143 kg Last Vital Signs Pulse 84 07/08/22 11:31 BP 124/83 07/08/22 11:31 O2 Del Method Room Air 07/08/22 10:26 Allergies Allergy/AdvReac Type Severity Reaction Status Date / Time No Known Allergies Allergy Verified 11/03/20 14:36 Home Medications Medication Instructions Recorded Confirmed Type labetalol 200 mg tablet 200 mg PO Q12H 05/21/22 07/08/22 History cetirizine 10 mg tablet (Zyrtec) 10 mg PO DAILY 06/11/22 07/08/22 History vit no.95-ferrous 1 tablet PO DAILY 06/11/22 07/08/22 History fumarate 28 mg-folic acid 800 mcg tablet () aspirin 81 mg tablet,delayed 81 mg PO DAILY 06/24/22 07/08/22 History release Patient hx anesthesia problems: none Family hx anesthesia problems: none Results Review: All pre-operative results and documents have been reviewed as part of the pre-operative evaluation. [facility] Past Medical History Medical History FH: HTN (hypertension) Morbid obesity Surgical History Surgical History History of delivery Family History Family History Mother Hypertension Social History Social History Smoking status: Never smoker Second hand tobacco smoke exposure: No Substance use: never Lack of Transportation: No Lack of Food: Never True Current Housing: I Have Housing Concerned About Future Housing: No Difficulty Paying Gas/Electric Bills: No Difficulty Paying for Meds: No Currently Unemployed: No Education: Associate Degree Difficulty w/ Childcare or Family Care: No Spiritual care concerns: No Anes - Eval Final PreProcedure Day of Procedure 07/08/22 11:51 Patient weight: morbidly obese Heart: regular rate and rhythm Lungs: clear to auscultation Airway: Mallampati scale class II Neurological: alert and oriented Last oral intake: >/= 8 hours ASA classification: III Emergent: no Anesthetic plan: proceed Anesthesia type and monitoring: regional spinal and standard monitoring Results Review: All pre-operative results and documents have been reviewed as part of the pre- operative evaluation. Informed Consent: The patient's anesthetic plan and its attendant risks and benefits were discussed with the patient/family/POA. Questions were solicited and answers provided to the satisfaction of the patient/family/POA.
[2022-07-08] MEDS: ceFAZolin 3 GM/D5W 100 ML 100 ML IVPB (12:08)
--- NOTE | 2022-07-08 13:47 | P.PCNOB_ITS ---
OB - Delivery Note Procedure Delivery date: 07/08/22 Procedure: Procedures Operation Date: 07/08/22 12:00 <No data on this case meets the specified criteria> Repeat low transverse delivery Events: Chronic Hypertension and Previous Delivery Delivery monitor: External FHT and External Uterine Route of delivery: Specimen: Yes (cord blood) Quantitative Blood Loss (ml): 965 Anesthesia type: Spinal Disposition: PACU Complications: None Narrative: The patient was taken to the operating room where she was prepared and draped in the usual sterile fashion in dorsal supine position with a leftward tilt. She received cefazolin preoperatively. Spinal anesthesia was found to be adequate. A Pfannenstiel skin incision was made along the previous scar line and was carried through to the underlying layer of the fascia. The fascia was incised in the midline and the incision was extended laterally. The fascia was dissected free of the underlying rectus muscles. The rectus muscles were in the midline. The peritoneum was identified, tented up and entered sharply. The peritoneal incision was extended superiorly and inferiorly with good visualization of the bladder. The bladder blade was placed. The vesicouterine peritoneum was identified, tented up and entered sharply. The incision was extended laterally and the bladder flap was developed. The bladder blade was replaced. The uterus was then incised sharply in a transverse fashion along the lower uterine segment. The incision was extended laterally. The 's head was delivered atraumatically to the sterile field, followed by the body. The nose and mouth were bulb suctioned. After a delay, the cord was clamped and cut. The was handed off the field. Cord blood was collected. The placenta was removed manually and was passed off the field. The uterus was exteriorized and cleared of all clots and debris. The uterine incision was reapproximated using 0 Monocryl in a running, locked fashion. A second, imbricating layer of the same suture was run. Additional figure of eight sutures of 0 vicryl were placed, and a dose of TXA 1 g IV was admin istered. Excellent hemostasis resulted. The uterus was returned the abdomen. The pelvis was irrigated copiously with warmed normal saline. Hemaderm was applied to the bladder flap. Rigorous hemostasis was assured. The fascial layer was reapproximated using 0 Vicryl in a running fashion. The skin was closed with a running, subcuticular stitch of 4 0 Vicryl. Dermaflex was applied externally. Sponge, lap, needle and instrument counts were correct. The patient was taken to the recovery room in stable condition. The infant went to the nursery in stable condition. I was present and scrubbed the entire procedure. [place] Baby Date of : 07/08/22 Time of : 12:43 Weeks of gestation at delivery: 39 Infant gender: Female Weight (pounds): 9 Weight (ounces): 1 presentation: vertex Placenta delivery description: Manual Removal and Normal Configuration Cord Vessel Description: 3 Vessels and Nuchal Cord score one minute: 8 score five minutes: 9
--- NOTE | 2022-07-08 13:51 | PM.OBDSVD ---
DS: Admitting Diagnosis Discharge Date 07/10/22 Admitting Diagnosis IUP at 39 1/7 weeks Prior Chronic hypertension DS: Discharge Diagnosis Discharge Diagnosis (1) History of delivery: Code(s): Z98.891 - History of uterine scar from previous surgery Status: Acute (2) Chronic hypertension affecting : Code(s): O10.919 - Unspecified pre-existing hypertension complicating , unspecified trimester Status: Acute OB - DS: Summary OB Procedures : None OB Procedures Intrapartum: OB Procedures: : None Peripartum Data Procedures: Procedures Operation Date: 07/08/22 12:00 <No data on this case meets the specified criteria> Time Spent with Patient Time attestation: Total time spent providing and/or coordinating discharge services: Discharge Plan Discharge Attending physician on discharge: Arnaud Kumar Discharging Clinician: Arnaud Kumra Patient Disposition: Home, Self-Care Activity: may shower, may drive after 2 weeks and pelvic rest Diet: regular Discharge Instructions: Call or return if temperature above 100.4? F, increased abdominal pain, increased vaginal bleeding or any new problems. Stand Alone Forms: General Discharge Information Follow-up/Referrals: Arnaud Kumar MD [Physician] - 4 Weeks Discharge Medications: New ibuprofen 600 mg tablet 600 mg PO Q6H PRN (Reason: cramps) Qty: 30 0RF hydrocodone-acetaminophen 5-325 mg tablet 1 - 2 tablet PO Q6H PRN (Reason: pain) Qty: 30 0RF ferrous sulfate 325 mg (65 mg iron) tablet 325 mg PO DAILY Qty: 30 0RF Continued labetalol 200 mg tablet 200 mg PO Q12H cetirizine [Zyrtec] 10 mg Tablet 10 mg PO DAILY PNV cmb#95-ferrous fumarate-FA [] 28 mg iron- 800 mcg Tablet 1 tablet PO DAILY Discontinued aspirin [Aspir-81] 81 mg Tablet,Delayed Release (Dr/Ec) 81 mg PO DAILY Date of admission: 07/08/22 09:58 Primary Care Provider: Osiel,Atul Iraheta Admitting Provider: Arnaud Kumar Attending physician on admission: Arnaud Kumar Condition: Stable
--- NOTE | 2022-07-08 15:28 | PC.NURSE ---
heart tones doppled in OR, FHT - 135 at 1219
[2022-07-08] MEDS: OXYTOCIN 30 UNITS/NS 500 ML 30 UNITS/500 ML BAG 125 UNITS IV CONT (15:40)
--- NOTE | 2022-07-08 16:24 | OBPPTRN ---
Patient transferred to post room # 291 via stretcher. Support person present. Oriented to unit, room, information board, rooming in, admission packet and security measures. Patient verbalizes understanding.
[2022-07-08] MEDS: ONDANSETRON INJ 4 MG/2 ML VIAL IV PUSH (17:24)
[2022-07-08] MEDS: DEXTROSE 5%/0.45% SOD CHL 1,000 ML 125 ML IV CONT (18:52)
[2022-07-08] MEDS: HYDROcodone/acetaminophen (*CRX) 5-325 MG TABLET 1 TAB PO (19:45)
[2022-07-08] MEDS: IBUPROFEN 600 MG TABLET PO (19:45)
[2022-07-09 06:46] LABS: Basophils Percent Auto 0.1 % (0.2-1.2); Eosinophils Percent Auto 0.1 % (0-4.4); Hematocrit 29.3 % (37.0-47.0); Hemoglobin 9.8 g/dL (12.0-15.0); Immature Granulocyte Absolute 0.11 K/mm3 (0.00-0.031); Immature Granulocyte Percent A 0.8 % (0-0.5); Lymphocytes Absolute Auto 1.71 K/mm3 (0.9-3.2); Mean Corpuscular HGB Conc 33.4 g/dl (32-36); Mean Corpuscular Hemoglobin 29.7 pg (26-34); Mean Corpuscular Volume 88.8 fl (80-100); Mean Platelet Volume 9.6 fl (7.4-10.4); Neutrophils Absolute Auto 11.4 K/mm3 (1.3-6.7); Platelet Count Result 276 k/mm3 (150-375); Red Cell Distribution Width 13.6 % (11.5-14.5); White Blood Count 14.2 K/mm3 (4.5-10.0)
--- NOTE | 2022-07-09 07:48 | WPDANLDPN2 ---
Anes-Prog Note L&D Date/Time: 07/09/22 07:48 Comfortable throughout: section Neuraxial method: spinal Epidural/Spinal procedure site: clean & non-tender Neuro status: Neuro function grossly intact. Cardiovascular status: normal Respiratory status: normal Airway patency: baseline Mental status: baseline Post-Op hydration status: normal Vital Signs: Last Vital Signs Temp 36.0 C L 07/08/22 19:45 Pulse 89 07/08/22 19:45 Resp 16 07/08/22 19:45 BP 138/92 H 07/08/22 19:45 Pulse Ox 98 07/08/22 16:35 O2 Del Method Room Air 07/08/22 16:00 Pain score (VAS): 2/10 I/O: Intake & Output 07/08/22 07/08/22 07/09/22 15:59 23:59 07:59 Intake Total 1700 500 Output Total 1065 550 Balance 635 -50 Post-procedural complaints: none Patient feedback: Patient satisfied with anesthetic care.
--- NOTE | 2022-07-09 07:48 | WPDANLDNPN2 ---
Anes-Prog Note L&D-Neuraxial Date/Time: 07/09/22 07:48 Neuraxial medications: intrathecal PF morphine Opiod-related complaints: none Patient feedback: Patient satisfied with post-operative pain management.
[2022-07-09 08:30] VITALS: BP 148/78; PULSE 94; RESP 18; TEMP 36.7; O2SAT 99
[2022-07-09] MEDS: MULTIVIT/MIN/PREN/FOL AC/IRON TABLET 1 TAB PO (09:49)
[2022-07-09] MEDS: DOCUSATE SODIUM 100 MG CAPSULE PO ×2 (09:49→16:16)
[2022-07-09] MEDS: IBUPROFEN 600 MG TABLET PO ×3 (09:49→21:44)
[2022-07-09] MEDS: POLYSACCHARIDE IRON COMPLEX 150 MG CAPSULE PO ×2 (09:50→16:17)
--- NOTE | 2022-07-09 10:19 | PC.NURSE ---
[id number] Mother led the conversation with her experience and plan to feed her so far and her ability to feed her infant with the choice of pumping and supplementing with formula. Mother gives her small amounts of colostrum when available. Mother states she used Clomid to achieve X2 and did not make a supply of breast milk with her first delivery. Mother is planning to be more intentional with her pumping this time to hopefully improve the supply/demand of an adequate milk supply. Reminded mother to use good handwashing technique to prevent infection. Mother is feeding appropriately for growth of and understands stimulating to eat if needed. has had appropriate feedings in the last 24 hours meets the outcomes for weight, output and jaundice at this time. Instructions given on cleaning, care, usage, that there should be no pain, pumping schedule for milk production, collection, and storage of human milk. Patient was assessed for correct placement, flange size, to pump for comfort and nipple stretching/stimulation for adequate milk production every 3 hours (8 times in 24 hours) 1-2 times at night with her Motif personal pump. Mother states she is confident to continue pump and formula feed her at home, when to call for assistance and denies any additional assistance or education at this time. Reinforced understanding of milk production, transition of milk, signs of adequate intake, transition of stool, prevention/relief of engorgement, responsive watching for feeding cues, the different methods of stimulating to breastfeed 2-3 hours after the start of the last feeding, community resources, medication information reviewed per [employer] and when to call a provider using the resource of the mom and baby guide. Mother voiced understanding of the education shared. Reported to the primary RN.
[2022-07-09 11:53] VITALS: BP 134/83; PULSE 91; RESP 16; TEMP 37; O2SAT 99
--- NOTE | 2022-07-09 12:56 | PM.OBPNVD ---
OB - PN: Subj Subjective Date/time seen: 07/09/22 12:56 Narrative: Pain OK. Tolerating diet. OB - PN: Obj Data Labs 07/09/22 04:40 Labs: Laboratory Results - last 24 hr 07/09/22 04:40 WBC 14.2 H RBC 3.30 L Hgb 9.8 L Hct 29.3 L MCV 88.8 MCH 29.7 MCHC 33.4 RDW 13.6 Plt Count 276 MPV 9.6 Immature Gran % (Auto) 0.8 H Neut % (Auto) 80.0 H Lymph % (Auto) 12.0 L Labette % (Auto) 7.0 Eos % (Auto) 0.1 Baso % (Auto) 0.1 L Lymph # (Auto) 1.71 Labette # (Auto) 1.0 H Eos # (Auto) 0.0 Baso # (Auto) 0.0 Abs Immat Gran (auto) 0.11 H Absolute Neuts (auto) 11.4 H Absolute Nucleated RBC 0.0 Nucleated RBC % 0.0 OB - PN A/P Plan Comments: A: POD#1, doing well. P: Routine care. Exam Narrative: AVSS I/O OK ABD soft, nontender, fundus firm. Incision c/d/i. EXT nontender
[2022-07-09 13:55] VITALS: BP 136/80; PULSE 97
[2022-07-09 13:58] VITALS: PULSE 97
[2022-07-09] MEDS: LABETALOL HCL 100 MG TABLET 200 MG PO ×2 (13:58→21:43)
--- NOTE | 2022-07-09 14:19 | PC.NURSE ---
Paper documentation exists on this patient due to [facility] downtime on 07/09/22 from to [[id number]] .
--- NOTE | 2022-07-09 14:56 | PC.NURSE ---
Paper documentation exists on this patient due to [employer] [facility] downtime on 07/08/22 from 1900to [id number] [] .
[2022-07-09 21:30] VITALS: BP 122/67; PULSE 103; RESP 16; TEMP 36.4
[2022-07-09 21:43] VITALS: PULSE 103
[2022-07-10] MEDS: IBUPROFEN 600 MG TABLET PO (05:43)
[2022-07-10 08:20] VITALS: BP 148/78; PULSE 99; RESP 18; TEMP 37.6; O2SAT 100
--- NOTE | 2022-07-10 08:47 | PM.OBPNVD ---
OB - PN: Subj Subjective Date/time seen: 07/10/22 08:47 Narrative: Pain OK. Tolerating diet. Would like to go home. OB - PN: Obj Data Labs 07/09/22 04:40 OB - PN A/P Plan Comments: A: POD#2, doing well. P: Home to f/u 4 weeks. Exam Narrative: AVSS ABD soft, nontender, fundus firm. Incision c/d/i. EXT nontender
[2022-07-10 08:57] VITALS: PULSE 92
[2022-07-10] MEDS: LABETALOL HCL 100 MG TABLET 200 MG PO (08:57)
[2022-07-10] MEDS: DOCUSATE SODIUM 100 MG CAPSULE PO (08:58)
[2022-07-10] MEDS: POLYSACCHARIDE IRON COMPLEX 150 MG CAPSULE PO (08:58)
[2022-07-10] MEDS: TETANUS,DIPHTHERIA,AC PERTUSSIS ADULT (0.5 ML) BOOSTRIX IM (08:58)
[2022-07-10] MEDS: MULTIVIT/MIN/PREN/FOL AC/IRON TABLET 1 TAB PO (08:58)
[2022-07-11 08:47] VITALS: BP 133/90; PULSE 87; RESP 20; TEMP 36.5; O2SAT 97
== END 2022-07-10 11:13 | disposition home or self-care (01) | DRG 787 ==
LOC: ANHLDR 13:53 → ANHOB2 16:42
PROVIDERS: Admitting Provider Obstetrics & Gynecology; PCP Family Medicine; Visit Provider Obstetrics & Gynecology
PROC: 10D00Z1 Extraction of Products of Conception, Low, Open Approach (ICD-10-PCS; CPT 59514; principal; 2022-07-08 12:00)
DX: O34.219 Maternal care for unspecified type scar from previous cesarean delivery (principal); O10.92 Unspecified pre-existing hypertension complicating childbirth; O99.214 Obesity complicating childbirth; E66.01 Morbid (severe) obesity due to excess calories; Z3A.39 39 weeks gestation of pregnancy; Z37.0 Single live birth
CPT/HCPCS: 36415; 85025; 90715; A9270; J0131; J0690; J1100; J2274; J2405; J2590; J7120